=== PATIENT | female | born 1990 | race Caucasian/White ===

== ENCOUNTER 2017-08-05 13:29 | Emergency (ER) | payer OTHER ==
[2017-08-05 14:43] LABS: microscopic required? NO
[2017-08-05 14:49] LABS: BASOPHIL % 0.3 % (0-2); PLATELET COUNT 217 x10^3mcL (130-400)
[2017-08-05 15:06] LABS: CALCIUM 8.9 mg/dL (8.5-10.1); CARBON DIOXIDE 27.9 mmol/L (21-32); CHLORIDE SERUM 103 mmol/L (98-107); CREATININE SERUM 0.5 mg/dL (0.6-1.0); GFR1 > 60 mL/min; GLUCOSE SERUM 121 mg/dL (74-106); POTASSIUM SERUM 3.3 mmol/L (3.5-5.1); SODIUM SERUM 138 mmol/L (136-145)
[2017-08-05 15:06] LABS: urine erythrocyte NEGATIVE (NEGATIVE)
[2017-08-05 15:11] LABS: ALBUMIN 3.1 g/dL (3.4-5.0); ALKALINE PHOSPHATASE 55 U/L (46-116); ALT/SGPT 23 U/L (14-59); AST/SGOT 12 U/L (15-37); BILIRUBIN TOTAL 0.2 mg/dL (0.20-1.00); LIPASE 148 IU/L (73-393); TOTAL PROTEIN, SERUM 6.4 g/dL (6.4-8.2)
[2017-08-05 16:25] VITALS: BP 99/58
== END 2017-08-05 16:30 | disposition home or self-care (01) ==
LOC: ED 13:29
PROVIDERS: Emergency Medicine
DX: O26.892 Other specified pregnancy related conditions, second trimester (principal); E86.0 Dehydration; E87.6 Hypokalemia; Z3A.15 15 weeks gestation of pregnancy
CPT/HCPCS: J2405; J7030; J7040; Q0092

== ENCOUNTER 2017-12-22 22:40 | Emergency (ER) | payer OTHER ==
[~2017-12-22] VITALS: Ht 165.1 cm; Wt 71.7 kg
[2017-12-22 22:49] VITALS: Ht 165.1 cm; Wt 71.7 kg
[2017-12-23 02:12] VITALS: BP 106/65
== END 2017-12-23 02:12 | disposition home or self-care (01) ==
LOC: ED 22:40
DX: O47.03 False labor before 37 completed weeks of gestation, third trimester (principal); Z3A.35 35 weeks gestation of pregnancy; G43.909 Migraine, unspecified, not intractable, without status migrainosus
CPT/HCPCS: Q0092

== ENCOUNTER 2018-07-18 16:56 | Emergency (ER) | payer OTHER ==
[~2018-07-18] VITALS: Ht 165.1 cm; Wt 66.2 kg
[2018-07-18 17:12] VITALS: Ht 165.1 cm; Wt 66.2 kg
[2018-07-18 17:42] LABS: BASOPHIL % 0.8 % (0-2); PLATELET COUNT 246 x10^3mcL (130-400); RED CELL DISTRIBUTION WIDTH 12.7 % (11.5-14.5)
[2018-07-18 17:45] LABS: microscopic required? NO
[2018-07-18 17:52] LABS: UA SPECIFIC GRAVITY 1.025 (1.005-1.035); urine erythrocyte NEGATIVE (NEGATIVE)
[2018-07-18 17:54] LABS: CARBON DIOXIDE 25.2 mmol/L (21-32); CHLORIDE SERUM 107 mmol/L (98-107); CREATININE SERUM 0.7 mg/dL (0.6-1.0); GFR1 > 60 mL/min; GLUCOSE SERUM 113 mg/dL (74-106); POTASSIUM SERUM 3.7 mmol/L (3.5-5.1); SODIUM SERUM 143 mmol/L (136-145)
[2018-07-18 17:59] LABS: ALBUMIN 3.9 g/dL (3.4-5.0); ALKALINE PHOSPHATASE 112 U/L (46-116); ALT/SGPT 21 U/L (14-59); AST/SGOT 11 U/L (15-37); BILIRUBIN TOTAL 0.29 mg/dL (0.20-1.00); LIPASE 158 IU/L (73-393); TOTAL PROTEIN, SERUM 6.9 g/dL (6.4-8.2)
[2018-07-18 21:02] VITALS: BP 116/79
== END 2018-07-18 21:40 | disposition home or self-care (01) ==
LOC: ED 16:56
PROVIDERS: Emergency Medicine
DX: R10.9 Unspecified abdominal pain (principal); R11.0 Nausea; M62.830 Muscle spasm of back
CPT/HCPCS: 20552; 36415; J2001; Q0092

== ENCOUNTER 2020-09-10 12:20 | Emergency (ER) | payer SELFPAY ==
[~2020-09-10] VITALS: Ht 165.1 cm; Wt 71.7 kg
[2020-09-10 12:22] VITALS: Ht 165.1 cm; Wt 71.7 kg
[2020-09-10 17:26] VITALS: BP 118/77
== END 2020-09-10 17:26 | disposition home or self-care (01) ==
LOC: ED 12:20
DX: R05 Cough (principal); G43.909 Migraine, unspecified, not intractable, without status migrainosus; R21 Rash and other nonspecific skin eruption
CPT/HCPCS: Q0092